=== PATIENT | female | born 1990 | race Caucasian/White ===

== ENCOUNTER 2023-09-24 16:44 | Emergency (ER) | payer OTHER ==
[2023-09-24 17:09] VITALS: TEMP 97.9
--- NOTE | 2023-09-24 17:42 | ED ---
Upper Extremity HPI - General Source: patient, RN notes reviewed Mode of arrival: ambulatory Limitations: no limitations - History of Present Illness MD Complaint: Injury to:: left, finger <Stephany Painter - Last Filed: 09/24/23 17:42> <Ca Cortes - Last Filed: 09/24/23 23:38> - General Chief Complaint: Extremity Injury, Upper Stated Complaint: left middle finger injury Time Seen by Provider: 09/24/23 17:40 - History of Present Illness Initial Comments: This is a 33 year old female who presents to the emergency department for left middle finger pain. States that she jammed it on something at work. Denies any other injuries. (Stephany Painter) - Related Data Allergies Allergy/AdvReac Type Severity Reaction Status Date / Time No Known Allergies Allergy Verified 09/24/23 17:06 Review of Systems ROS Other: All systems not noted in ROS Statement are negative. <Stephany Painter - Last Filed: 09/24/23 17:42> ROS Other: All systems not noted in ROS Statement are negative. <Ca Cortes - Last Filed: 09/24/23 23:38> ROS Statement: Those systems with pertinent positive or pertinent negative responses have been documented in the HPI. Past Medical History Past Medical History: No Reported History History of Any Multi-Drug Resistant Organisms: None Reported Past Surgical History: No Surgical Hx Reported Past Psychological History: No Psychological Hx Reported Smoking Status: Current every day smoker Past Alcohol Use History: None Reported Past Drug Use History: None Reported <Stephany Painter - Last Filed: 09/24/23 17:42> General Exam Limitations: no limitations <Stephany Painter - Last Filed: 09/24/23 17:42> Limitations: no limitations General appearance: alert, in no apparent distress Head exam: Present: atraumatic, normocephalic, normal inspection Eye exam: Present: normal appearance, PERRL, EOMI. Absent: scleral icterus, conjunctival injection, periorbital swelling Extremities exam: Present: full ROM, tenderness, normal capillary refill, other (Radial pulses 2+) Back exam: Present: normal inspection Neurological exam: Present: alert, oriented X3 Psychiatric exam: Present: normal affect, normal mood Skin exam: Present: warm, dry, intact, other (Ecchymosis to the middle finger). Absent: normal color, rash <Ca Cortes - Last Filed: 09/24/23 23:38> - General Exam Comments Initial Comments: Visual Physical Exam Vital signs reviewed General: Well-appearing, nontoxic, no acute distress. Head: Normocephalic, atraumatic Eyes: PERRLA, EOMI ENT: Airway patent Chest: Nonlabored breathing Skin: No visual rash, normal skin tone Neuro: Alert and oriented 3 Musculoskeletal: No gross abnormalities (Stephany Painter) Course Vital Signs 09/24/23 09/24/23 17:03 19:43 Temperature 97.9 F Pulse Rate 78 67 Respiratory 16 18 Rate Blood Pressure 123/81 126/82 O2 Sat by Pulse 99 99 Oximetry Medical Decision Making <Stephany Painter - Last Filed: 09/24/23 17:42> <Ca Cortes - Last Filed: 09/24/23 23:38> - Medical Decision Making I performed the QuickNote portion of this chart. Signed Stephany Painter PA-C. (Stephany Painter) Was pt. sent in by a medical professional or institution (JAMES Carbajal, [employer] BOILER OPERATOR, urgent care, hospital, or snf...) When possible be specific @ -No Did you speak to anyone other than the patient for history (EMS, parent, family, police, friend...)? What history was obtained from this source @ -No Did you review nursing and triage notes (agree or disagree)? Why? @ -I reviewed and agree with nursing and triage notes Were old charts reviewed (outside hosp., previous admission, EMS record, old EKG, old radiological studies, urgent care reports/EKG's, snf records)? Report findings @ -No old charts were reviewed Differential Diagnosis (chest pain, altered mental status, abdominal pain women, abdominal pain men, vaginal bleeding, weakness, fever, dyspnea, syncope, headache, dizziness, GI bleed, back pain, seizure, CVA, palpatations, mental health, musculoskeletal)? @ -Differential Musculoskeletal Muscular strain, contusion, ligament sprain, fracture, arthritis, septic arthritis, bursitis, cellulitis, muscle spasm, nerve compression, DVT, arterial occlusion, herpes zoster, electrolyte abnormality, tumor.... This is not meant to be in all inclusive list EKG interpreted by me (3pts min.). @ -None X-rays interpreted by me (1pt min.). @ -X-ray left third finger shows possible occult fracture of the distal phalanx CT interpreted by me (1pt min.). @ -None done U/S interpreted by me (1pt. min.). @ -None done What testing was considered but not performed or refused? (CT, X-rays, U/S, labs)? Why? @ -None What meds were considered but not given or refused? Why? @ -None Did you discuss the management of the patient with other professionals (professionals i.e. DrAmie, PA, BI[employer] BOILER OPERATOR, lab, RT, psych nurse, school social worker, lube technician, teacher, corporate compliance officer, business case analyst)? Give summary @ -No Was smoking cessation discussed for >3mins.? @ -No Was critical care preformed (if so, how long)? @ -No Were there social determinants of health that impacted care today? How? (Homelessness, low income, unemployed, alcoholism, drug addiction, transportation, low edu. Level, literacy, decrease access to med. care, alf, rehab)? @ -No Was there de-escalation of care discussed even if they declined (Discuss DNR or withdrawal of care, Hospice)? DNR status @ -No What co-morbidities impacted this encounter? (DM, HTN, Smoking, COPD, CAD, Cancer, CVA, ARF, Chemo, Hep., AIDS, mental health diagnosis, sleep apnea, morbid obesity)? @ -None Was patient admitted / discharged? Hospital course, mention meds given and route, prescriptions, significant lab abnormalities, going to OR and other pertinent info. @ -Charge. Patient presented to the emergency department for evaluation of left little finger injury. X-ray obtained which shows possible occult fracture to the distal phalanx of the third finger. Patient is placed in a finger splint and advised follow-up with her PCP. Patient stable on discharge. Case discussed with Dr. العراقي. Undiagnosed new problem with uncertain prognosis? @ -No Drug Therapy requiring intensive monitoring for toxicity (Heparin, Nitro, Insulin, Cardizem)? @ -No Were any procedures done? @ -No Diagnosis/symptom? @ -finger fracture Acute, or Chronic, or Acute on Chronic? @ -acute Uncomplicated (without systemic symptoms) or Complicated (systemic symptoms)? @ -uncomplicated Side effects of treatment? @ -No Exacerbation, Progression, or Severe Exacerbation? @ -No Poses a threat to life or bodily function? How? (Chest pain, [place], [place], pneumonia, PE, COPD, DKA, ARF, appy, cholecystitis, CVA, Diverticulitis, Homicidal, Suicidal, threat to staff... and all critical care pts) @ -No (Ca Cotres) Disposition <Stephany Painter - Last Filed: 09/24/23 17:42> Is patient prescribed a controlled substance at d/c from ED?: No <Ca Cortes - Last Filed: 09/24/23 23:38> Clinical Impression: Fracture, finger, distal phalanx Disposition: HOME SELF-CARE Condition: Stable Instructions (If sedation given, give patient instructions): Finger Fracture (ED) Additional Instructions: Please follow up with your primary care provider. Rest, ice, elevate. Alternate Tylenol and Motrin as needed for pain. Return to the emergency department for new or worsening symptoms. Referrals: Nonstaff,Physician [REFERRING] - 1-2 days Juwan Rodriguez DO [Doctor of Osteopathic Medicine] - 1-2 days
--- NOTE | 2023-09-24 18:16 | XR ---
EXAMINATION TYPE: XR finger LT DATE OF EXAM: 09/24/2023 COMPARISON: None HISTORY: Middle finger injury TECHNIQUE: 3 view left middle finger FINDINGS: In the AP projection there is a lucency within the midline of the distal phalanx in a longi tudinal direction. This may be artifact however without visualization and additional projections and no disruption of the distal cortex of the tuft of the finger. No additional areas suspicious for fracture is evident. Follow up exams can be performed 7-10 days fr om acute trauma for continued pain. IMPRESSION: 1. Clinical consideration for an occult longitudinal fracture of the distal phalanx left middle fing er 2. Acute osseous abnormality is not otherwise apparent left middle finger.
[2023-09-24 19:48] VITALS: BP 126/82; PULSE 67; RESP 18
== END 2023-09-24 19:45 | disposition home or self-care (01) ==
LOC: EC 16:44
DX: S62.633A Displaced fracture of distal phalanx of left middle finger, initial encounter for closed fracture (principal); F17.200 Nicotine dependence, unspecified, uncomplicated; X58.XXXA Exposure to other specified factors, initial encounter
CPT/HCPCS: 99283